=== PATIENT | female | born 1975 | race Caucasian/White ===

== ENCOUNTER 2017-08-07 21:42 | Emergency (ER) | payer OTHER, MEDICAID ==
[2017-08-07 22:39] LABS: HEMATOCRIT 42.8 % (36.0-47.0); HEMOGLOBIN 14.5 g/dL (12.0-15.5); HGB HCT DIFFERENCE 0.7; MEAN CORPUSCULAR HGB CONC 33.9 g/dL (32.0-36.0); MEAN CORPUSCULAR VOLUME 88 fl (80-97); RED BLOOD COUNT 4.84 10^6/uL (3.72-5.28); RED CELL DISTRIBUTION WIDTH 13.5 % (11.5-14.0)
[2017-08-07 22:56] LABS: ALANINE AMINOTRANSFERASE 21 U/L (9-52); ALBUMIN 4.4 g/dL (3.5-5.0); ALKALINE PHOSPHATASE 94 U/L (38-126); ANION GAP 10 (5-19); ASPARTATE AMINO TRANSFERASE 17 U/L (14-36); BILIRUBIN,DIRECT 0.1 mg/dL (0.0-0.4); BILIRUBIN,TOTAL 0.4 mg/dL (0.2-1.3); BLOOD UREA NITROGEN 16 mg/dL (7-20); CALCIUM 9.2 mg/dL (8.4-10.2); CARBON DIOXIDE 28 mmol/L (22-30); CHLORIDE 104 mmol/L (98-107); CREATININE RESULT 0.82 mg/dL (0.52-1.25); GLUCOSE 106 mg/dL (75-110); LIPASE 70.2 U/L (23-300); POTASSIUM 4.2 mmol/L (3.6-5.0); SODIUM 142.2 mmol/L (137-145); TOTAL PROTEIN 7.4 g/dL (6.3-8.2)
[2017-08-07 23:02] LABS: BAND NEUTROPHILS % (MANUAL) 1 % (3-5); BASOPHILS % (MANUAL) 0 % (0-2); EOSINOPHILS % (MANUAL) 0 % (0-6); LYMPHOCYTES % (MANUAL) 7 % (13-45); TOTAL CELLS COUNTED 100
[2017-08-07 23:04] LABS: TOXIC GRANULATION 2+; TOXIC VACUOLATION PRESENT
[2017-08-07 23:05] LABS: OVALOCYTES SLIGHT; SCHISTOCYTES 1+
[2017-08-07] MEDS ORDERED: DIPHENHYDRAMINE HCL 50 MG/ML VIAL IV ONE (23:21)
[2017-08-07] MEDS ORDERED: METOCLOPRAMIDE HCL INJ/PF 10 MG/2 ML SDV IV ONE (23:21)
[2017-08-07] MEDS ORDERED: NORMAL SALINE 1000 ML 1,000 ML IV ONE (23:22)
--- NOTE | 2017-08-07 23:24 | ER Document Report ---
ED GI/ - General Chief Complaint: Nausea/Vomiting/Diarrhea Stated Complaint: ABDOMINAL PAIN Time Seen by Provider: 08/07/17 23:13 Notes: Patient is a 42-year-old female comes emergency department for chief complaint of nausea, vomiting, diarrhea. Symptoms started this morning. She states she has vomited 10 times, had 10 episodes of diarrhea. No blood in emesis or diarrhea. She denies fever. She denies no suspicious foods, obvious sick contacts, recent travel, recent antibiotics. She states she feels a sharp pain and then vomits but she denies any current abdominal pain other than generalized discomfort. She denies dysuria, vaginal bleeding or discharge. She has had a hysterectomy, she states she had Zofran at home and she tried this but she vomited anyway. TRAVEL OUTSIDE OF THE [place] IN LAST 30 DAYS: No - Related Data Allergies/Adverse Reactions: Penicillins Allergy (Severe, Verified 08/07/17 23:18) Hives, swelling, itching, SOB latex [Latex] Allergy (Intermediate, Verified 08/07/17 23:18) Itching, Redness Past Medical History - General Information source: Patient - Social History Smoking Status: Never Smoker Chew tobacco use (# tins/day): No Frequency of alcohol use: Occasional Drug Abuse: None Lives with: Family Family History: Hypertension, Malignancy Patient has suicidal ideation: No Patient has homicidal ideation: No - Past Medical History Cardiac Medical History: Denies: Hx Coronary Artery Disease, Hx Heart Attack, Hx Hypertension Pulmonary Medical History: Denies: Hx Asthma, Hx Bronchitis, Hx COPD, Hx Pneumonia Neurological Medical History: Reports: Hx Migraine. Denies: Hx Cerebrovascular Accident, Hx Seizures Renal/ Medical History: Denies: Hx Peritoneal Dialysis GI Medical History: Reports: Hx Gastroesophageal Reflux Disease - DX IN 2000 Musculoskeltal Medical History: Denies Hx Arthritis, Reports Hx Musculoskeletal Deformity, Reports Hx Musculoskeletal Trauma Psychiatric Medical History: Reports: Hx Anxiety - DX IN 2008, Hx Post Traumatic Stress Disorder - DX IN 2009 Infectious Medical History: Past Surgical History: Reports: Hx Abdominal Surgery - abdominal plasty, Hx Section - x2, Hx Cholecystectomy, Hx Hysterectomy, Hx Orthopedic Surgery, Hx Tonsillectomy, Hx Tubal Ligation - Immunizations Immunizations up to date: Yes Hx Diphtheria, Pertussis, Tetanus Vaccination: Yes Review of Systems - Review of Systems Constitutional: No symptoms reported EENT: No symptoms reported Cardiovascular: No symptoms reported Respiratory: No symptoms reported Gastrointestinal: See HPI Genitourinary: No symptoms reported Female Genitourinary: No symptoms reported Musculoskeletal: No symptoms reported Skin: No symptoms reported Hematologic/Lymphatic: No symptoms reported Neurological/Psychological: No symptoms reported Physical Exam - Vital signs Vitals: Temp Pulse Resp BP Pulse Ox 97.5 F 93 18 138/103 H 100 08/07/17 22:06 08/07/17 22:06 08/07/17 22:06 08/07/17 22:06 08/07/17 22:06 Interpretation: Normal - General General appearance: Appears well, Alert In distress: None - HEENT Head: Normocephalic, Atraumatic Eyes: Normal Pupils: PERRL Sinus: Normal Nasal: Normal Mouth/Lips: Normal Mucous membranes: Dry Pharynx: Normal Neck: Normal - Respiratory Respiratory status: No respiratory distress Chest status: Nontender Breath sounds: Normal Chest palpation: Normal - Cardiovascular Rhythm: Regular Heart sounds: Normal auscultation Murmur: No - Abdominal Inspection: Normal Distension: No distension Bowel sounds: Normal Tenderness: Tender - Mild generalized tenderness, nonspecific, no guarding, no rigidity, no rebound tenderness. No: McBurney's point, Vinson's sign, Guarding Organomegaly: No organomegaly - Back Back: Normal, Nontender. No: Tender, CVA tenderness - Extremities General upper extremity: Normal inspection, Nontender, Normal color, Normal ROM , Normal temperature General lower extremity: Normal inspection, Nontender, Normal color, Normal ROM , Normal temperature, Normal weight bearing. No: Lorrie's sign - Neurological Neuro grossly intact: Yes Cognition: Normal Orientation: AAOx4 Moore Coma Scale Eye Opening: Spontaneous Moore Coma Scale Verbal: Oriented Starr Coma Scale Motor: Obeys Commands Moore Coma Scale Total: 15 Speech: Normal Motor strength normal: LUE, RUE, LLE, RLE Sensory: Normal - Psychological Associated symptoms: Normal affect, Normal mood - Skin Skin Temperature: Warm Skin Moisture: Dry Skin Color: Normal Course - Re-evaluation Re-evalutation: Patient has very mild generalized abdominal tenderness, nonspecific, no guarding , no rigidity. She does not appear to be in any distress. Vital signs unremarkable. She does have dry mucous membranes. CBC showing mild leukocytosis with elevation of neutrophils but no bandemia. Otherwise unremarkable. Chemistry unremarkable. Urinalysis showing elevated specific gravity but no ketones or infection. On reevaluation patient states she is feeling much better, wants to try fluids. I suspect patient has a virus based on her exam, workup, presenting symptoms. On reevaluation patient states that she "threw up a little and had diarrhea". Patient requesting more medications and more fluids. Given additional Reglan, will also give p.o. medications to treat gastritis. On reevaluation patient is doing much better, tolerated p.o. without difficulty , declines any additional interventions and states she is ready to go home. Patient discharged with medications, follow-up instructions, return precautions. Patient states understanding and agreement. - Vital Signs Vital signs: Temp Pulse Resp BP Pulse Ox 98.4 F 93 14 121/80 79 L 08/08/17 02:00 08/07/17 22:06 08/08/17 03:05 08/08/17 03:52 08/08/17 03:52 - Laboratory Result Diagrams: 08/07/17 22:25 08/07/17 22:25 Laboratory results interpreted by me: 08/07/17 22:25 WBC 12.0 H Seg Neuts % (Manual) 90 H Band Neutrophils % 1 L Lymphocytes % (Manual) 7 L Monocytes % (Manual) 2 L Abs Neuts (Manual) 10.9 H Discharge - Discharge Clinical Impression: Vomiting and diarrhea Condition: Stable Disposition: HOME, SELF-CARE Additional Instructions: Your workup indicates some dehydration but no other abnormality. This is most likely a viral gastroenteritis. Take the medications as prescribed for nausea/ vomiting, take plenty of fluids, start with bland foods and slowly progress. I recommend taking the Benadryl along with the Reglan. Follow-up with primary care. Return for any concerning or worsening symptoms including fever, uncontrolled vomiting, abdominal swelling, bloody stools, or any other concerning symptoms. Prescriptions: Diphenhydramine HCl 25 mg PO Q6H PRN #30 tablet PRN Reason: Famotidine [Pepcid 20 mg Tablet] 20 mg PO BID #20 tablet Metoclopramide HCl [Reglan] 1 - 2 tab PO ASDIR PRN #30 tablet PRN Reason: Forms: Return to Work Referrals: TULIO RESENDIZ MD [Primary Care Provider] - Follow up as needed
[2017-08-08 00:11] LABS: APPEARANCE,URINE SLIGHTLY-CLOUDY; BILIRUBIN,URINE NEGATIVE (NEGATIVE); GLUCOSE, URINE NEGATIVE (NEGATIVE); KETONES,URINE NEGATIVE (NEGATIVE); LEUKOCYTE ESTERASE,URINE NEGATIVE (NEGATIVE); NITRITE,URINE NEGATIVE (NEGATIVE); PROTEIN,URINE NEGATIVE (NEGATIVE); UROBILINOGEN,URINE NEGATIVE mg/dL (<2.0)
[2017-08-08] MEDS ORDERED: FAMOTIDINE 20 MG TABLET PO ONE (01:57)
[2017-08-08] MEDS ORDERED: HYDROCODONE/ACETAMINOPHEN 5-325 MG TABLET PO ONE (01:57)
[2017-08-08] MEDS ORDERED: SUCRALFATE 1 GM TABLET PO ONE (01:57)
[2017-08-08] MEDS ORDERED: METOCLOPRAMIDE HCL INJ/PF 10 MG/2 ML SDV IV ONE (02:39)
[2017-08-08] MEDS ORDERED: DIPHENHYDRAMINE HCL 50 MG/ML VIAL IV ONE (02:39)
[2017-08-08 03:56] VITALS: BP 121/80
== END 2017-08-08 03:56 | disposition home or self-care (01) ==
LOC: ER 21:42
DX: R11.2 Nausea with vomiting, unspecified (principal); R19.7 Diarrhea, unspecified; R10.817 Generalized abdominal tenderness; D72.828 Other elevated white blood cell count; Z90.710 Acquired absence of both cervix and uterus; Z88.0 Allergy status to penicillin; Z91.040 Latex allergy status; Z87.19 Personal history of other diseases of the digestive system; Z90.49 Acquired absence of other specified parts of digestive tract
CPT/HCPCS: 96376; 99284; 96361; 96374; 96375; 36415; 83690; 85025; 80053; 81001; J1200 ×2; J2765; J7030

== ENCOUNTER 2019-06-09 20:59 | Emergency (ER) | payer MEDICAID ==
[2019-06-09] MEDS ORDERED: ASPIRIN 81 MG TABLET, CHEWABLE PO ONE (21:31)
--- NOTE | 2019-06-09 21:31 | ER Document Report ---
ED Medical Screen (RME) - General Chief Complaint: Headache Stated Complaint: HEADACHE Time Seen by Provider: 06/09/19 21:26 Primary Care Provider: TULIO RESENDIZ MD [Primary Care Provider] - Follow up as needed Mode of Arrival: Ambulatory Information source: Patient Notes: 42-year-old female presents to ED with migraine headache to 2 days. She is tried Fioricet ibuprofen Excedrin Migraine so far today with no relief. Patient is alert oriented respirations regular and unlabored speaking in full sentences. She states she has had a little bit of nausea that she usually gets with her migraines but is not overbearing. States she had a hysterectomy in 2009. She states no smoke or drugs states she drink maybe once a month. She states she has had shortness of breath and chest pain this evening. She states the chest pain is right in the center of the chest. She does have cardiac arrhythmia does not have any blood pressure cholesterol problems. 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 Blood pressure 170/106 at the pivot desk patient states she normally has normal blood pressure is 142/92 when I assessed her. I have greeted and performed a rapid initial assessment of this patient. A comprehensive ED assessment and evaluation of the patient, analysis of test results and completion of medical decision making process will be conducted by an additional ED providers. TRAVEL OUTSIDE OF THE [place] IN LAST 30 DAYS: No - Related Data Allergies/Adverse Reactions: Penicillins Allergy (Severe, Verified 08/07/17 23:18) Hives, swelling, itching, SOB latex [Latex] Allergy (Intermediate, Verified 08/07/17 23:18) Itching, Redness Past Medical History - Past Medical History Cardiac Medical History: Denies: Hx Coronary Artery Disease, Hx Heart Attack, Hx Hypertension Pulmonary Medical History: Denies: Hx Asthma, Hx Bronchitis, Hx COPD, Hx Pneumonia Neurological Medical History: Reports: Hx Migraine. Denies: Hx Cerebrovascular Accident, Hx Seizures Renal/ Medical History: Denies: Hx Peritoneal Dialysis GI Medical History: Reports: Hx Gastroesophageal Reflux Disease - DX [place] 2000 Musculoskeltal Medical History: Denies Hx Arthritis, Reports Hx Musculoskeletal Deformity, Reports Hx Musculoskeletal Trauma Psychiatric Medical History: Reports: Hx Anxiety - DX IN 2008, Hx Post Traumatic Stress Disorder - DX IN 2009 Infectious Medical History: Past Surgical History: Reports: Hx Abdominal Surgery - abdominal plasty, Hx Breast Surgery - lift and augmentation, Hx Section - x2, Hx Cholecystectomy, Hx Hysterectomy, Hx Orthopedic Surgery, Hx Tonsillectomy, Hx Tubal Ligation - Immunizations Immunizations up to date: Yes Hx Diphtheria, Pertussis, Tetanus Vaccination: Yes Physical Exam - Vital signs Vitals: Temp Pulse Resp BP Pulse Ox 97.7 F 93 17 170/106 H 97 06/09/19 21:04 06/09/19 21:04 06/09/19 21:04 06/09/19 21:04 06/09/19 21:04 Course - Vital Signs Vital signs: Temp Pulse Resp BP Pulse Ox 97.7 F 93 17 170/106 H 97 06/09/19 21:04 06/09/19 21:04 06/09/19 21:04 06/09/19 21:04 06/09/19 21:04 Doctor's Discharge - Discharge Referrals: TULIO RESENDIZ MD [Primary Care Provider] - Follow up as needed
[2019-06-09] MEDS ORDERED: ONDANSETRON 4 MG TAB.RAPDIS PO ONE (21:33)
--- NOTE | 2019-06-09 22:27 | ER Document Report ---
ED General - General Chief Complaint: Headache Stated Complaint: HEADACHE Time Seen by Provider: 06/09/19 21:26 Primary Care Provider: TULIO RESENDIZ MD [NO LOCAL MD] - Follow up as needed Mode of Arrival: Ambulatory TRAVEL OUTSIDE OF THE [place] IN LAST 30 DAYS: No - HPI Notes: 42-year-old female presents to ED with migraine headache to 2 days. She is tried Fioricet ibuprofen Excedrin Migraine so far today with no relief. Patient is alert oriented respirations regular and unlabored speaking in full sentences. She states she has had a little bit of nausea that she usually gets with her migraines but is not overbearing. States she had a hysterectomy in 2009. She states no smoke or drugs states she drink maybe once a month. She states she has had shortness of breath and chest pain this evening. She states the chest pain is right in the center of the chest. She does have cardiac arrhythmia does not have any blood pressure cholesterol problems. States she did not tell him at the front office director that she had chest pain. Blood pressure 170/106 at the pivot desk patient states she normally has normal blood pressure is 142/92 when I ass essed her. Patient reports this is not the worst headache of her life. She denies any head injury she reports no neck pain or fever or chills or cough or congestion. She states she is anxious and nervous that the headache is more right-sided today where as her previous migraine headaches have been left-sided. She reports her last negative head CT was 10 years ago for the same headaches. The patient has had prior ED visits for the same headaches. She is also had previous episodes of chest pain in the past, describing these episodes is nonexertional. She reports no leg pain or swelling. The patient reports she had a bus driver/monitor for 2 weeks and a stress test which was negative approximately 1 year ago for the same chest pain. No focal numbness or weakness or significant belching, although she does have a history of reflux. Medications include Excedrin, Prilosec, ibuprofen, Xanax, Fioricet. - Related Data Allergies/Adverse Reactions: Penicillins Allergy (Severe, Verified 06/09/19 21:37) Hives, swelling, itching, SOB latex [Latex] Allergy (Intermediate, Verified 06/09/19 21:37) Itching, Redness Past Medical History - General Information source: Patient - Social History Smoking Status: Never Smoker Chew tobacco use (# tins/day): No Frequency of alcohol use: Occasional Drug Abuse: None Family History: Hypertension, Malignancy Patient has suicidal ideation: No Patient has homicidal ideation: No - Past Medical History Cardiac Medical History: Denies: Hx Coronary Artery Disease, Hx Heart Attack, Hx Hypertension Pulmonary Medical History: Denies: Hx Asthma, Hx Bronchitis, Hx COPD, Hx Pneumonia Neurological Medical History: Reports: Hx Migraine. Denies: Hx Cerebrovascular Accident, Hx Seizures Renal/ Medical History: Denies: Hx Peritoneal Dialysis GI Medical History: Reports: Hx Gastroesophageal Reflux Disease - DX IN 2000 Musculoskeletal Medical History: Denies Hx Arthritis, Reports Hx Musculoskeletal Deformity, Reports Hx Musculoskeletal Trauma Psychiatric Medical History: Reports: Hx Anxiety - DX IN 2008, Hx Post Traumatic Stress Disorder - DX IN 2009 Infectious Medical History: Past Surgical History: Reports: Hx Abdominal Surgery - abdominal plasty, Hx Breast Surgery - lift and augmentation, Hx Section - x2, Hx Cholecyst ectomy, Hx Hysterectomy, Hx Orthopedic Surgery, Hx Tonsillectomy, Hx Tubal Ligation - Immunizations Immunizations up to date: Yes Hx Diphtheria, Pertussis, Tetanus Vaccination: Yes Review of Systems - Review of Systems -: Yes All other systems reviewed and negative Physical Exam - Vital signs Vitals: Temp Pulse Resp BP Pulse Ox 97.7 F 93 17 170/106 H 97 06/09/19 21:04 06/09/19 21:04 06/09/19 21:04 06/09/19 21:04 06/09/19 21:04 - Notes Notes: PHYSICAL EXAMINATION: GENERAL: Well-appearing, well-nourished and in no acute distress. HEAD: Atraumatic, normocephalic. No temporal arterial tenderness. No TMJ joint tenderness. No maxillary or frontal sinus tenderness. EYES: Pupils equal round and reactive to light, extraocular movements intact, conjunctiva are normal. Anterior chambers are not shallow. ENT: Nares patent, oropharynx clear without exudates. Moist mucous membranes. NECK: Normal range of motion, supple without lymphadenopathy LUNGS: Breath sounds clear to auscultation bilaterally and equal. No wheezes rales or rhonchi. Unable to reproduce patient's chest wall pain on palpation. HEART: Regular rate and rhythm without murmurs ABDOMEN: Soft, nontender, nondistended abdomen. No guarding, no rebound. No masses appreciated. Female : deferred Musculoskeletal: Normal range of motion, no pitting or edema. No cyanosis. Negative Homans. No palpable cord. NEUROLOGICAL: Cranial nerves grossly intact. Normal speech, normal gait. Normal sensory, motor exams. no cerebellar ataxia. Patient is alert and oriented x3. PSYCH: Patient is somewhat anxious on exam. SKIN: Warm, Dry, normal turgor, no rashes or lesions noted. Course - Re-evaluation Re-evalutation: 06/10/19 00:11 Patient was given medications for pain and nausea and anxiety. The patient reported she could find a ride home. Patient reported relief of her headache and her chest pain. CT scan of the head was negative. Chest x-ray was negative. There is no evidence for acute [place] or ischemia or significant electrolyte imbalance or anemia. Patient had an elevate d TSH level and she will follow-up with her regular practitioner for more definitive testing on her thyroid. 06/10/19 02:39 - Vital Signs Vital signs: Temp Pulse Resp BP Pulse Ox 97.7 F 93 17 170/106 H 98 06/09/19 21:04 06/09/19 21:04 06/09/19 21:04 06/09/19 21:04 06/09/19 23:21 - Laboratory Result Diagrams: 06/10/19 00:35 06/10/19 00:35 Laboratory results interpreted by me: 06/10/19 00:35 TSH 6.01 H - EKG Interpretation by Dc EKG shows normal: Sinus rhythm Additional EKG results interpreted by me: 06/09/19 22:59 EKG is interpreted by de showed normal sinus rhythm heart rate of 81. There is no gross evidence for acute [place] or ischemia noted. There was no significant changes compared to previous EKG reviewed from 10/18/2015. Discharge - Discharge Clinical Impression: Headache Qualifiers: Headache type: other headache syndrome Qualified Code(s): G44.89 - Other headache syndrome Chest pain Qualifiers: Chest pain type: unspecified Qualified Code(s): R07.9 - Chest pain, unspecified Hypothyroid Qualifiers: Hypothyroidism type: unspecified Qualified Code(s): E03.9 - Hypothyroidism, unspecified Condition: Stable Disposition: HOME, SELF-CARE Instructions: Headache ([facility]), Pain Medication Injection ([facility]), Chest Pain of Unclear Cause ([facility]) Additional Instructions: You need follow-up testing on your thyroid for possible hypothyroid state. Prescriptions: Promethazine HCl [Phenergan 25 mg Tablet] 1 tab PO Q4HP PRN #15 tablet PRN Reason: Referrals: TULIO RESENDIZ MD [NO LOCAL MD] - Follow up in 1 week
--- NOTE | 2019-06-09 22:30 | RADIOLOGY REPORT (SQ) ---
EXAM DESCRIPTION: XR CHEST 2 VIEWS COMPLETED DATE/TME: 06/09/2019 21:32 CLINICAL HISTORY: 43 years, Female, chest pain COMPARISON: X-ray chest 10/18/2015 NUMBER OF VIEWS: TECHNIQUE: LIMITATIONS: None. FINDINGS: No evidence of pulmonary infiltrate or pleural effusion. The heart and mediastinum are unremarkable. Pulmonary vascularity appears normal. IMPRESSION: Normal chest x-ray. copyright 2010 [employer]- All Rights Reserved
[2019-06-09 22:46] LABS: INTERNATIONAL RATION (INR) 0.95; PROTHROMBIN TIME 12.7 SEC (11.4-15.4)
[2019-06-09 22:47] LABS: PARTIAL THROMBOPLASTIN TIME 27.2 SEC (23.5-35.8)
[2019-06-09] MEDS ORDERED: MORPHINE SULFATE 10 MG/ML INJ IM ONE (22:56)
[2019-06-09] MEDS ORDERED: ALPRAZOLAM 0.5 MG TABLET PO ONE (22:56)
[2019-06-09] MEDS ORDERED: KETOROLAC TROMETHAMINE 60 MG/2 ML SDV IM ONE (22:56)
[2019-06-09] MEDS ORDERED: DIPHENHYDRAMINE HCL 25 MG CAPSULE PO ONE (22:57)
[2019-06-09] MEDS ORDERED: PROMETHAZINE HCL 25 MG TABLET PO ONE (22:57)
--- NOTE | 2019-06-10 00:36 | RADIOLOGY REPORT (SQ) ---
CT HEAD WITHOUT IV CONTRAST EXAM DATE: 06/09/2019 10:53 PM CDT HISTORY: Headache. COMPARISON: None. TECHNIQUE: CT scan of the brain without IV contrast. This exam was performed according to our departmental dose-optimization program, which includes automated exposure control, adjustment of the mA and/or kV according to patient size and/or use of iterative reconstruction technique. FINDINGS: The ventricles, cisterns, and sulci are age-appropriate. No evidence of acute infarction, intracranial hemorrhage, extra-axial fluid collection, or midline shift. No air-fluid levels are seen in the paranasal sinuses to suggest acute sinusitis. No depressed skull fracture. IMPRESSION: No acute intracranial findings.
[2019-06-10 00:55] LABS: ABSOLUTE LYMPHOCYTES (AUTO) 2.5 10^3/uL (0.5-4.7); ABSOLUTE MONOCYTES (AUTO) 0.4 10^3/uL (0.1-1.4); ABSOLUTE NEUT (AUTO) 4.8 10^3/uL (1.7-8.2); BASOPHILS % (AUTO) 0.5 % (0-2); EOSINOPHILS % (AUTO) 0.6 % (0-6); HEMATOCRIT 40.3 % (36.0-47.0); HEMOGLOBIN 13.3 g/dL (12.0-15.5); LYMPHOCYTES % (AUTO) 31.9 % (13-45); MEAN CORPUSCULAR HEMOGLOBIN 29.3 pg (27.0-33.4); MEAN CORPUSCULAR HGB CONC 33.1 g/dL (32.0-36.0); MEAN CORPUSCULAR VOLUME 89 fl (80-97); MONOCYTES % (AUTO) 5.2 % (3-13); PLATELET COUNT 241 10^3/uL (150-450); RED BLOOD COUNT 4.55 10^6/uL (3.72-5.28); RED CELL DISTRIBUTION WIDTH 13.1 % (11.5-14.0); SEGMENTED NEUTROPHILS % (AUTO) 61.8 % (42-78); TOTAL CELLS COUNTED % (AUTO) 100 %; WHITE BLOOD COUNT 7.8 10^3/uL (4.0-10.5)
[2019-06-10 01:16] LABS: ALKALINE PHOSPHATASE 80 U/L (38-126); ANION GAP 8 (5-19); ASPARTATE AMINO TRANSFERASE 20 U/L (14-36); BILIRUBIN,DIRECT 0.2 mg/dL (0.0-0.4); BILIRUBIN,TOTAL 0.2 mg/dL (0.2-1.3); BLOOD UREA NITROGEN 12 mg/dL (7-20); CARBON DIOXIDE 29 mmol/L (22-30); CHLORIDE 104 mmol/L (98-107); CREATINE KINASE 52 U/L (30-135); GLUCOSE 88 mg/dL (75-110); TOTAL PROTEIN 7.2 g/dL (6.3-8.2)
[2019-06-10 01:27] LABS: NT PRO BNP 82 pg/mL (<125)
[2019-06-10 01:29] LABS: TROPONIN I < 0.012 ng/mL
[2019-06-10 03:51] VITALS: BP 137/58
--- NOTE | 2019-06-10 09:28 | EKG REPORT ---
SEVERITY:- BORDERLINE ECG - SINUS RHYTHM BORDERLINE T ABNORMALITIES, INFERIOR LEADS : Confirmed by: Hannah Webster MD 10-Jun-2019 09:27:23
== END 2019-06-10 03:30 | disposition home or self-care (01) ==
LOC: ER 20:59
DX: G44.89 Other headache syndrome (principal); R11.0 Nausea; F41.9 Anxiety disorder, unspecified; E03.9 Hypothyroidism, unspecified; K21.9 Gastro-esophageal reflux disease without esophagitis; Z79.899 Other long term (current) drug therapy; Z79.1 Long term (current) use of non-steroidal anti-inflammatories (NSAID); Z79.891 Long term (current) use of opiate analgesic; Z88.0 Allergy status to penicillin; Z91.040 Latex allergy status
CPT/HCPCS: 93005; 36415; 84439; 82553; 82550; 83735; 84443; 85025; 85610; 85730; 80053; 84484; 85379; 83880; 71046; 70450; 93010; J3490 ×3; J1885; S0119; J2270; 96372; 99284